=== PATIENT | female | born 2000 | race Caucasian/White ===

== ENCOUNTER → 2020-12-01 08:28 | Outpatient (CLI) | payer OTHER, SELFPAY ==
[2017-02-05 17:48] VITALS: BMI 22.3
--- NOTE | 2020-12-01 08:36 | RAD_ITS ---
STUDY: X-RAY - LUMBAR SPINE REASON FOR EXAM: Female, 20 years old. LOW BACK PAIN TECHNIQUE: 5 view(s) of the lumbar spine were obtained including oblique views. COMPARISON: None FINDINGS: Normal lumbar lordosis. There is a minimal levoscoliosis of the lumbar spine. There is a normal alignment of the vertebrae. Normal vertebral bodies and endplates. Normal disc space heights. The soft tissue structures are unremarkable. RAD/L/S Spine Min 4 Views IMPRESSION: Minimal levoscoliosis. Electronically Signed: Jimy Patel MD at 13:26 EDT , Service support ,
== END ==
DX: M51.16 Intervertebral disc disorders with radiculopathy, lumbar region (principal); M54.5 Low back pain
CPT/HCPCS: 72110

== ENCOUNTER 2021-01-26 05:45 | Day surgery (SDC) | payer OTHER, SELFPAY ==
[2021-01-26] VITALS (9 sets, daily range): BP systolic 112–130; BP diastolic 62–93; PULSE 70–94; RESP 16–18; TEMP 36.3–37; O2SAT 94–99; BMI 25.8
[2021-01-26 06:45] LABS: Hematocrit 39.5 % (37-47); Hemoglobin 13.2 g/dL (12.0-15.0); Mean Corp Hgb Conc 33.4 g/dL (32-36); Mean Corpuscular Hgb 28.9 pg (27.0-32.0); Mean Corpuscular Volume 86.4 fL (81-99); Mean Platelet Vol. 9.3 fl (6.2-12.0); Platelet Count 291 K/mm3 (150-450); RBC Distribution Width CV 12.4 % (11.6-14.6); RBC Distribution Width SD 39.1 fl (35.1-43.9); Red Blood Count 4.57 M/mm3 (4.2-5.4); White Blood Count 6.9 K/mm3 (4.4-11.0)
[2021-01-26] MEDS: Lactated Ringers 1,000 ML 100 ML IV (06:53)
--- NOTE | 2021-01-26 07:20 | HP.PCM.OB_ITS ---
History and Physical Date of Admission: 01/26/21 Surgical History and Physical Date: 01/26/2021 Name: BARBARA ORTIZ Age: 20 Date of : 2000 Barbara Ortiz, a 20 year old female 0 0 1 0 0, presents for on at . -- Barbara is here for a FUP after induced 01/19/21. Pt was orignally on Depo, but switched to an OCP. Pt conceived on OCP. She has since changed back to Depo following . Reports bleeding that varies in heaviness, cramping and a yellow-brown discharge. Updated medications and allergies. MK MEDICATIONS HISTORY: Current medications prescribed by our practice are: 1. medroxyprogesterone 150 mg/mL intramuscular suspension, Take to Dr. Woods office to be given 2. promethazine 25 mg tablet, take 1 tablet q 4 hrs prn nausea ALLERGIES: Penicillins, Intolerance-unknown, cat dander and Swelling (non- specific) Infections - Chicken pox Illnesses - none Accidents - None Hospitalizations - None Review of Systems: GENERAL - Denies fever, or chills SKIN - Denies skin changes EYES - Denies visual changes EARS - Denies difficulty hearing NOSE - Denies nasal congestion or bleeding MOUTH - Denies sore throat or difficulty swallowing NECK - Denies pain or swelling RESPIRATORY - Denies shortness of breath or wheezing CARDIOVASCULAR - Denies palpitations or chest pain GASTROINTESTINAL - Denies nausea, vomiting, diarrhea, constipation GENITOURINARY - Denies dysuria, frequency of urination, incontinence of urine MUSCULOSKELETAL - Denies joint or muscle pain NEUROLOGICAL - Denies localized numbness or weakness PSYCHIATRIC - Denies depression or anxiety ENDOCRINE - Denies heat or cold intolerance, weight loss or gain HEMATO-IMMUNOLOGIC - Denies excesive bleeding with cuts SOCIAL HISTORY: Alcohol Use - drinks occasionally Smoking - denies smoking Diet - no special diet Lifestyle - moderate stress lifestyle Exercise - active Seat Belt Use - always Employer - [employer] Job Description - Customer Sales Representative Illicit Drug Use - denies use of street drugs Sexual Activity - single sexual partner Residence - lives with parents Hours Worked - [address] Control - Depo FAMILY HISTORY: MENSTRUAL HISTORY: LMP Known?- Definite, LMP - 10/27/20, Age Onset Menarche - 10 PAST PREGNANCIES: Total Pregnancies - 1; Full Term Pregnancies - 0; Premature - 0; Abortions, Ind uced - 1; Abortions, Spontaneous - 0; Ectopics - 0; Multiple Births - 0; Living Children - 0 SURGICAL HISTORY: 1. lumpectomy 06/2016 ; - PHYSICAL EXAM Weight- 155.58573 lbs Height- 64.76 inch BMI:[id number] CONSTITUTIONAL - NAD, well nourished, and well developed SKIN - No rash, lesions, or ulcers HEENT - Normocephalic, PERRLA, EOMI NECK - No nodes, no nuchal rigidity and thyroid normal size and texture ABDOMEN - Without hepatosplenomegaly, distention, masses, rebound, or guarding; normal bowel sounds; no hernias EXTREMITIES - No edema or calf tenderness NEUROLOGICAL - Cranial nerves II-XII grossly intact PSYCHIATRIC - A and O to time, place, person, mood and affect External Genitial Vagina - non-tender without lesions Urethra/Urethral Meatus - non-tender Bladder - non-tender Vagina - vaginal new are pink and moist without loss of rugae and no evidence of atropy Cervix - without cervical motion tenderness and has normal size and features without evident lesions Uterus - 5-6 cm in size, mobile and nontender Adnexa - clear without massess or tenderness ASSESSMENT/PLAN: 1. Abnormal Uterine And Vaginal Bleeding, Unspecified Patient arrives status post at in [place] on 01/19/2021 via D with light anthesia at approximately 10 weeks gestation Now arrives with heavy bleeding for the past several days. Bleeding has improved recently. Exam benign, cervix closed, uterus nontender. Denies fevers or chills Ultrasound today shows thickened endometrial stripe. Otherwise within normal limits Educated patient on findings educated on expectant management versus medical management versus surgical management. Patient elects for surgical management via suction D, r/b/a discussed including risk for perforation infection with multiple procedures
--- NOTE | 2021-01-26 07:30 | POC_PTH ---
PATIENT: MITCHELL ORTIZ LOC: [facility] [place][id number] AGE/SX: 20/F ROOM: RE01/26/[address]: Dr. Dale Coffman MD : 2000 BED: DIS: 01/26/2021 SPEC #: [id number] RECD: 01/26/21 12:30 STATUS: EDYTA REDarrian #: [id number] MASSIMO: 01/26/21 07:[address]: Dale Coffman DEPT: SURGICAL PATHOLOGY RECD BY: Lilia Whitney ENTERED: 01/29/21 08:38 SP TYPE: PROD CONC OTHR DR: No Primary Care Phys Tissues: Product of conception, NOS Procedures: Surgery Specimen Level IV HEADER OPERATION: Suction dilation and curettage PRE-OP DIAGNOSIS: Abnormal uterine and vaginal bleeding TISSUE SUBMITTED: Products of conception MICROSCOPIC DIAGNOSIS Endometrium, curettage: Rare chorionic villi. Secretory endometrium and decidual change. See comment. AM:harsh 01/31/2021 COMMENT The findings are consistent with products of conception. MICROSCOPIC DESCRIPTION Slides are reviewed. GROSS DESCRIPTION Received in fixative is one container labeled with the patient's name and designated products of conception. The specimen consists of multiple irregular and hemorrhagic fragments of red-manning soft tissue that in aggregate measure 8 x 6 x 1 cm. parts are not grossly recognized. [employer] portions are submitted in three cassettes. / AM:harsh 01/29/2021 Additional specimen is submitted, 4-10 ? remainder of the specimen. / AM:harsh 01/30/21 TC:5 CPT: 05631
--- NOTE | 2021-01-26 08:05 | PCM.DC ---
Discharge Instructions Diet Discharge Diet: No restrictions Activity Discharge Activity: Return to Normal Activity and May Drive May resume sexual activity in: 4-6 weeks Weight Bearing Status: Weight bearing as tolerated Dressing / Incision Call your doctor if your incision/area has: Continuous Slow Oozing and Foul Smelling Discharge Call your doctor if you observe: Fever of 101 or Higher, Shortness of breath and Chest pain Follow Up Care Please Follow Up With: Dale Coffman MD When: 2 weeks post operatively Test Results: Test results from this visit will be discussed in further detail at your follow-up appointment, if applicable. Discharge Plan Admission Attending Provider: Dale Coffman Primary Care Provider: Care Physician,Chastity Primary Discharge Orders/Prescriptions Prescriptions: No Action medroxyprogesterone 150 MG/ML syringe 150 mg IM .[id number] RF: 0
--- NOTE | 2021-01-26 08:07 | OP.PCM_ITS ---
Report of Operation Date of Procedure: 01/26/21 Pre-Operative Diagnosis: Abnormal uterine bleeding, concern for retained produc ts of conception Post-Operative Diagnosis: Abnormal uterine bleeding, concern for retained products of conception Surgery/Procedure Performed:: Suction dilation curettage Description of Surgical Findings:: Surgeon: Dale Coffman MD Anesthesia: General EBL: 50 cc Urine output: 25 cc none IV fluids: 600 cc Complications none Specimen, suspected products of conception Findings: Preoperative bedside ultrasound with thickened endometrial stripe. Cervix closed. 7 mm curved suction curette used. Post procedure bedside ultrasound with thin endometrial stripe. Good hemostasis. Consent: Patient arrives after D&C for EAB on 01/19/2021 with abnormal uterine bleeding and concern for products of conception with thickened endometrial stripe on ultrasound in office. Desires suction dilation curettage. Patient understands risk of the procedure include but are not limited to visceral or vascular injury, prolonged hospitalization, blood loss need for transfusion, reoperation. Patient states understanding wished proceed. All questions answered and consent was signed. Procedure: Patient brought back to the OR where general anesthesia found to be adequate. 200 mg of IV doxycycline given for infection prophylaxis. Patient was prepared and draped in a dorsolithotomy position with yellowfin stirrups. Preoperative bedside ultrasound with the above findings. Weighted speculum is placed in posterior aspect of vagina. Cervical dilators were used to dilate the cervix. 7 mm curved suction curette used under direct visualization. Good hemostasis was noted. Post procedure bedside ultrasound performed above findings were noted. Good hemostasis noted. All counts correct x2. Patient tolerated proc edure well and was brought to recovery in a stable condition
[2021-01-26] MEDS: Ketorolac 30 MG/ML Syringe IV (08:40)
== END 2021-01-26 09:34 | disposition home or self-care (01) ==
LOC: SDC 05:47 → AC 05:48
PROVIDERS: Referring Provider Obstetrics & Gynecology; Visit Provider Obstetrics & Gynecology
PROC: (CPT 59812; principal; 2021-01-26 07:15)
DX: O07.1 Delayed or excessive hemorrhage following failed attempted termination of pregnancy (principal); J45.909 Unspecified asthma, uncomplicated
CPT/HCPCS: 01965; 59812; 85027; 86850; 86900; 86901; 88305; J7120

== ENCOUNTER 2021-10-20 08:17 | Emergency (ER) | payer OTHER, SELFPAY ==
[2021-10-20 08:18] VITALS: BP 168/117; PULSE 126; RESP 20; TEMP 36.2; O2SAT 95; BMI 25.0
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
[2021-10-20 09:18] LABS: Amphetamine Urine VISTA NEGATIVE (<1000 ng/mL); Barbiturate Urine VISTA NEGATIVE (< 200 ng/mL); Benzodiazepine Urine VISTA NEGATIVE (< 200 ng/mL); Cocaine Urine VISTA NEGATIVE (< 300 ng/mL); Ecstacy Urine VISTA NEGATIVE (< 500 ng/mL); Methadone Urine VISTA NEGATIVE (< 300 ng/mL); PCP Urine VISTA NEGATIVE (< 25 ng/mL); THC Urine VISTA NEGATIVE (< 50 ng/mL); Vista UDS pH Range 6
[2021-10-20 09:20] LABS: Absolute Neutrophil Count 8.6 X10^3/uL (2.0-7.7); Basophil# 0.03 X10^3/uL; Basophil% 0.3 % (0-1); Eosinophil# 0.01 X10^3/uL; Eosinophils% 0.1 % (0-5); Hemoglobin 14.5 g/dL (12.0-15.0); Lymphocyte % 17.3 % (19-41); Mean Corp Hgb Conc 34.5 g/dL (32-36); Mean Corpuscular Hgb 29.5 pg (27.0-32.0); Mean Corpuscular Volume 85.4 fL (81-99); Monocyte# 0.39 X10^3/uL; Monocyte% 3.5 % (0-10); NRBC Flagged by Analyzer 0 % (0-5); Neutrophil # 8.64 X10^3/uL (2.7-7.7); Neutrophil % 78.4 % (47-70); Platelet Count 420 K/mm3 (150-450); RBC Distribution Width CV 12.4 % (11.6-14.6); RBC Distribution Width SD 38.7 fl (35.1-43.9); Red Blood Count 4.92 M/mm3 (4.2-5.4)
[2021-10-20 09:26] LABS: Internal QC Validated? YES +Cl - CLEAR BKGD; Pregnancy, Serum, hCG Quali. NEGATIVE Negative
[2021-10-20 09:29] LABS: Anion Gap 7 (5-15); BUN 11 mg/dL (7-18); BUN/Creat Ratio 16.9 RATIO (10-20); Calcium,Total 9.4 mg/dL (8.5-10.1); Chloride 110 mmol/L (98-107); Creatinine, Serum 0.65 mg/dL (0.55-1.02); EST Glomerular Filtration Rate 120 mL/min (>60); Est Glom Filt Rate - Afr Amer 145 mL/min (>60); Estimated Creatinine Clearance 121.13 ml/min; Glucose 100 mg/dL (74-106); Potassium 3.5 mmol/L (3.5-5.1); Sodium Level 140 mmol/L (136-145)
[2021-10-20 09:36] LABS: Alcohol, Blood (Medical)-Serum < 3.0 mg/dL
[2021-10-20] MEDS: hydrOXYzine PAM 25 MG Capsule 50 MG PO (11:20)
[2021-10-20 11:27] VITALS: RESP 16
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
--- NOTE | 2021-10-22 11:44 | CM.ED ---
JOB Note SW called patient to follow up to safety plan. Pt said that she is looking at apartments currently and decided to go to work today. Patient said that she will be calling this afternoon for counselor and said it may be good if I get on usp anxiety medication. Patient said that she is doing ok and her mood is better. Patent said that her emotions are better handled than on Friday. SW encouraged patient to follow up with counseling appointment today and patient verbalized understanding. Plan: Home on Safety Plan Chelsie FRANKS
== END 2021-10-20 11:28 | disposition home or self-care (01) ==
PROVIDERS: Emergency Provider Emergency Medicine; Visit Provider Emergency Medicine
DX: F43.0 Acute stress reaction (principal); F41.9 Anxiety disorder, unspecified; R45.851 Suicidal ideations
CPT/HCPCS: 80048; 80307; 82077; 84703; 85025; 87811; 99285